=== PATIENT | male | born 1995 | race Caucasian/White ===

== ENCOUNTER 2016-06-21 13:48 | Emergency (ER) | payer OTHER ==
[~2016-06-21] VITALS: Ht 167.6 cm; Wt 50.0 kg
[2016-06-21 14:16] VITALS: BP 145/90
[2016-06-21] MEDS ORDERED: LIDOCAINE 1%-EPI 1:100K, 20ML SQ ONE (14:30)
[2016-06-21] MEDS ORDERED: LIDOCAINE 1%, 20ML ONE (14:34)
[2016-06-21] MEDS ORDERED: LIDOCAINE 1%-EPI 1:100K, 20ML ONE (14:44)
[2016-06-21] MEDS ORDERED: BACITRACIN ZINC OINT 500U/GM, 0.9 GM ONE (15:15)
== END 2016-06-21 15:25 | disposition home or self-care (01) ==
LOC: ED 15:00
DX: S01.81XA Laceration without foreign body of other part of head, initial encounter (principal); S09.90XA Unspecified injury of head, initial encounter; W25.XXXA Contact with sharp glass, initial encounter; Y93.89 Activity, other specified; Y92.009 Unspecified place in unspecified non-institutional (private) residence as the place of occurrence of the external cause; Y99.8 Other external cause status
CPT/HCPCS: 12011